=== PATIENT | female | born 1985 | race Caucasian/White ===

== ENCOUNTER 2017-03-11 18:37 | Emergency (ER) | payer OTHER ==
--- NOTE | 2017-03-11 21:35 | ED NURSING NOTES ---
Clinical Report - Nurses [facility] [address] [place] [address] 03/11/2017 18:38 Patient: HAIM BELLA TRIAGE Triage time 18:42. Acuity: LEVEL 3. Chief Complaint: ABDOMINAL PAIN and CRAMPS, SPOTTING and VAGINAL BLEEDING. --18:56 Young Singh R.N. 18:42 03/11/17. BP: 127/81. HR: 71. RR: 16. O2 saturation: 100%. Temp: 98 F. Pain level now: 02/27. --18:56 Young Singh R.N. Weight: 57.6 kg. Height/Length: 65 inches. BMI: 21.2. --18:56 Young Singh R.N. Medications Nadolol Oral. --18:48 Young Singh R.N. Pre vitamins. --18:48 Young Singh R.N. Medication/allergy information source: the patient. --18:56 Young Singh R.N. Allergies Cefaclor. --18:51 Young Singh R.N. The following entry was struck by Young Singh R.N., 18:50 (03/11/17) Reason - other. <<STRICKEN ENTRY-- No Known Drug Allergy. --18:48 Young Singh R.N. --END STRIKE>>. History Arrived by private vehicle. Historian: patient. Accompanied by spouse. ( LMP 01/10/2017, seen at urgent care today and had serum HCG (79.29) done. Has been having having dark brown vaginal spotting with abdominal cramping.). This started today. Last oral intake by patient was (5 hours ago). 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 PAST MEDICAL HX: Last normal menstrual period- January 10. 1. Para 0. She has had care in a clinic. SURGERY HX: ( defibrillator implant). SOCIAL HX: Light tobacco smoker (cigarette)- less than 1/2 a pack per day. Occasional alcohol use; consumes beer occasionally. --18:56 Young Singh R.N. PROBLEMS: Long QT syndrome. ICD (Implanted defibrillator). --18:50 Young Singh R.N. Interventions ID band on patient. To room. --18:56 Young Singh R.N. PHYSICAL ASSESSMENT Ambulatory to room. GENERAL / NEURO / PSYCH: Alert. Oriented X 4. Appears in no acute distress. HEENT: Mucous membranes are pink. RESPIRATORY: Respirations not labored. Breath sounds within normal limits. CVS: Normal heart rate and rhythm. Capillary refill less than 2 seconds. GI / : Abdomen soft. Abdominal tenderness in the suprapubic area and left lower quadrant. Bowel sounds within normal limits. Moderate vaginal bleeding present, consisting of dark blood. EXTREMITIES: No lower extremity edema. SKIN: Skin is warm and dry. --18:58 Young Singh R.N. NURSING PROGRESS NOTES Head of bed elevated. Reassurance given. Patient identifiers checked. Call light placed in reach. Side rails up x 1. Bed placed in lowest position. Brakes of bed on. Patient ready for evaluation- HOUSE WRECKER notified. --18:58 Young Singh R.N. 19:27 03/11/2017 Site #1 started via IV in the right antecubital space with an 20g angiocath; one attempt. Blood drawn: rainbow set. Labeled in the presence of the patient and sent to the lab. Saline lock flushed with 10 mL saline. --19:27 Young Singh R.N. Patient ID band checked for patient name and birthdate: family confirmed. Blood samples drawn from the IV site with Vacutainer by nurse: rainbow set. Line flushed with 10 mL normal saline post blood draw. Reassessment after procedure (ultrasound). Overall patient status is the same. GI / : Abdominal tenderness in the left lower quadrant and lower abdomen. BACK: The patient reports low back pain. SKIN: Skin is warm. --19:27 Young Singh R.N. 20:37 03/11/17. BP: 110/60. HR: 64. RR: 16. O2 saturation: 98%. --20:38 Young Singh R.N. GI / : The patient reports abdominal pain located in the LLQ and lower abdomen. Abdominal tenderness. SKIN: Skin is warm and dry. --20:38 Young Singh R.N. 21:56 03/11/2017 Site #1 removed upon discharge. Manual pressure applied. --21:56 Young Singh R.N. DISPOSITION / DISCHARGE No learning barriers present. Discharge instructions provided and reviewed with the patient and spouse. Reviewed referral to a primary care physician for followup. Patient and spouse verbalized understanding. Written instructions provided. The patient was discharged home and accompanied by spouse. She left the Emergency Department ambulatory and via private vehicle. Spouse driving. --21:55 Young Singh R.N. 21:54 03/11/17. BP: 112/72. HR: 78. RR: 16. O2 saturation: 100%. Pain level now: 0/10. --21:55 Young Singh R.N. Departure time: 21:56. --21:56 Young Singh R.N. Locked/Released at 03/11/2017 21:56 by Young Singh R.N.
--- NOTE | 2017-03-11 21:35 | ED CLINICAL REPORT ---
Clinical Report - Physicians/Mid Levels [facility] [address] [place] [address] 03/11/2017 18:38 [id number] Time Seen: 18:57 Mar 11 2017. Arrived- By private vehicle. Historian- patient. HISTORY OF PRESENT ILLNESS Chief Complaint: VAGINAL BLEEDING. This started just prior to arrival and still present. The symptoms are described as mild. The patient has had pelvic pain. ( last Menstrual period January 10,positive test at home around 10 days previously, now with some abdominal cramping on the left side and some brown discharge.). REVIEW OF SYSTEMS No nausea, vomiting, headache, cough or difficulty breathing. No enlarged lymph nodes. All systems otherwise negative, except as recorded above. SOCIAL HISTORY Smoker- current status unknown. Alcohol use. ADDITIONAL NOTES The nursing notes have been reviewed. PHYSICAL EXAM Vital Signs: 03/11/2017 18:42 BP: 127/81. HR: 71. RR: 16. O2 saturation: 100%. Temp: 98 F. Pain level now: 5/10. Appearance: Alert. No acute distress. HEENT: Normal external inspection. ENT: Pharynx normal. Neck: Neck supple. CVS: Heart sounds normal. Respiratory: No respiratory distress. Breath sounds normal. Abdomen: Soft. Bowel sounds normal. Back: Normal external inspection. No CVA tenderness. : External inspection normal. Speculum exam normal. A scant amount of thick and bloody vaginal discharge present. No cervical dilation. No tenderness present on bimanual exam. No uterine tenderness. No tenderness with movement of the cervix. (chaperoned exam with Manuela SMILEY). Skin: Skin warm. Neuro: Oriented X 3. LABS, X-RAYS, AND EKG Laboratory Tests: UA-Culture if indicated: (JOSE A: 03/11/2017 19:00) ( MsgRcvd 03/11/2017 19:22) Final results Test Result Flag Units (Reference) URINE COLOR YELLOW URINE APPEARANCE CLEAR URINE GLUCOSE NEGATIVE (NEGATIVE) URINE BILIRUBIN NEGATIVE (NEGATIVE) URINE KETONE NEGATIVE (NEGATIVE) URINE SPECIFIC GRAVITY 1.020 (1.010-1.030) URINE PH 6.0 (5.0-8.0) URINE PROTEIN NEGATIVE (NEGATIVE) URINE UROBILINOGEN 0.2 EU/dL (0.2-1.0) URINE NITRITE NEGATIVE (NEGATIVE) URINE BLOOD TRACE-INTACT (NEGATIVE) URINE LEUK ESTERASE NEGATIVE (NEGATIVE) URINE RBC 0-1 rbc/hpf (0-1) URINE WBC 0-1 wbc/hpf (0-1) URINE EPITHELIAL CELLS 0-1 EPI/hpf (0-5) URINE BACTERIA NONE SEEN (NONE SEEN) URINE COMMENT CULT NOT INDICATED URINE CULTURES ARE SET-UP BASED ON THE FOLLOWING CRITERIA:POSITIVE NITRITEPOSITIVE LEUKOCYTE ESTERASEGREATER THAN 10 WHITE BLOOD CELLSMODERATE (2+) OR GREATER BACTERIA CBC w Diff: (JOSE A: 03/11/2017 19:25) ( [facility] 03/11/2017 19:36) Final results Test Result Flag Units (Reference) WHITE BLOOD COUNT 7.6 K/uL (4.5-11.5) RED BLOOD COUNT 4.19 M/uL (4.00-5.20) HEMOGLOBIN 13.4 gm/dL (12.0-16.0) HEMATOCRIT 39.4 % (36.0-46.0) MEAN CELL VOLUME 94 fL (80-100) MEAN CORPUSCULAR HGB 32 pg (26-34) MEAN CORPUSCULAR HGB CONC 34 g/dL (31-37) RED CELL DISTRIBUTION WIDTH 12.3 % (11.6-14.8) PLATELET COUNT 257 K/uL (150-400) NEUTROPHIL % 50.2 % (50-75) LYMPH % 41.3 H % (25-40) MONO % 7.1 % (3-14) EOSINOPHIL % 0.9 % (0-4) BASOPHIL % 0.5 % (0-2) CMP: (JOSE A: 03/11/2017 19:25) ( MngRcvd 03/11/2017 20:16) Final results Test Result Flag Units (Reference) GLUCOSE 93 mg/dL (70-110) BUN 15 mg/dL (7-18) CREATININE 0.7 mg/dL (0.6-1.3) Estimated GFR >60 mL/min Estimated GFR- >60 mL/min Note: Persistent reduction over 3 months in eGFR<60 mL/min/1.73 m2 defines CKD. Patients with eGFR values>=60 mL/min/1.73 m2 may also have CKD if evidence ofpersistent proteinuria. Additional information may be foundat www.kidney.org. SODIUM 139 mmol/L (136-145) POTASSIUM 3.8 mmol/L (3.5-5.1) CHLORIDE 104 mmol/L (98-107) CARBON DIOXIDE 24 mmol/L (21-32) CALCIUM 8.9 mg/dL (8.5-10.1) TOTAL PROTEIN 7.6 g/dL (6.4-8.2) ALBUMIN 4.3 g/dL (3.3-5.0) BILIRUBIN, TOTAL 0.6 mg/dL (0.0-1.0) ALKALINE PHOSPHATASE 44 L U/L (46-116) AST (SGOT) 23 U/L (15-37) ALT (SGPT) 22 U/L (12-78) BETA HCG, QUANTITATIVE 94 mIU/mL REFERENCE RANGE:Adult Males: <2 mIU/mLNon- Females: <6 mIU/mL Females:Approximate Approximate hCGGestational Age Range (mIU/mL) 0-1 week 0-501-2 weeks 40-3002-3 weeks 100-35267-5 weeks 500-30034-1 months 5,000-200,0002-3 months 10,000-100,0002nd trimester 3,000-50,0003rd trimester 1,000-50,000 Wet Prep: (JOSE A: 03/11/2017 20:39) ( MsgRcvd 03/11/2017 20:51) Final results SPECIMEN DESCRIPTION: C Test Result Flag Units (Reference) WET MOUNT CLUE CELLS:: FEW * EPITHELIAL CELLS: FEW -- SOURCE?: CERVIX WHITE BLOOD CELLS: FEW TRICHOMONAS:: NONE -- YEAST:: NONE Type & Rh: (JOSE A: 03/11/2017 19:25) ( MsgRcvd 03/11/2017 21:24) Final results Test Result Flag Units (Reference) PATIENT BLOOD TYPE O Positive . Note - Tests: (us: IMPRESSION: 1. No evidence of an intrauterine gestational sac. Recommend follow-up Beta hCG and ultrasound 2. 2.6 cm simple left ovarian cyst with minimal free fluid Electronically Final signed by:Jeremy Milner MD 03/11/2017 9:58:39 PM). PROGRESS AND PROCEDURES Course of Care: atient was a low hCG, which does not clinically correlate to any signs of , maybe early development of , maybe lasting portion of miscarriage. Patient to have laboratory drawn again in 48 hours. Understands this. No positive. Pain not out of proportion to exam. No signs of ectopic. 03/11/2017 21:54 BP: 112/72. HR: 78. RR: 16. O2 saturation: 100%. Pain level now: 0/10. Patient is stable. Symptoms better. Patient/family counseled. Disposition: Discharged. Condition: good. CLINICAL IMPRESSION First trimester ; positive test in emergency department. INSTRUCTIONS (PATIENT BLOOD TYPE O Positive BETA HCG, QUANTITATIVE 94 mIU/mL REFERENCE RANGE: Adult Males: <2 mIU/mL Non- Females: <6 mIU/mL Females: Approximate Approximate hCG Gestational Age Range (mIU/mL) 0-1 week 0-50 1-2 weeks 40-300 2-3 weeks 100-1000 3-4 weeks 500-6000 1-2 months 5,000-200,000 2-3 months 10,000-100,000 2nd trimester 3,000-50,000 3rd trimester 1,000-50,000 ). (Electronically signed by Nancy Villasenor P.A.-C 03/11/2017 23:18)
--- NOTE | 2017-03-11 21:35 | ED ORDER SUMMARY ---
..... Patient: HAIM BELLA OrderSheet [facility] VisitID: [id number] [place] [address] 31y, F Registration Date/Time: 03/11/2017 ORDER SHEET Weight: 57.6 kg Allergies: Cefaclor GENERAL ORDERS: US OB 1st Trimester w Transvag (january 08) Urgent (18:56 03/11/2017 EKoroleva P.A.-C) (Ack 18:58 LMuller) (19:25 LMuller) CBC w Diff Urgent (18:57 03/11/2017 EKoroleva P.A.-C) (Ack 18:58 LMuller) (19:25 LMuller) CMP Urgent (18:57 03/11/2017 EKoroleva P.A.-C) (Ack 18:58 LMuller) (19:25 LMuller) Serum Quantitative Urgent (18:57 03/11/2017 EKoroleva P.A.-C) (Ack 18:58 LMuller) (19:25 LMuller) UA-Culture if indicated Urgent (18:57 03/11/2017 EKoroleva P.A.-C) (Ack 18:58 LMuller) (19:25 LMuller) Pelvic Exam Setup (18:57 03/11/2017 EKoroleva P.A.-C) (19:28 CHernandez R.N.) Type & Rh Urgent (20:21 03/11/2017 EKoroleva P.A.-C) (Ack 20:49 CHategekimana) (21:04 CHernandez R.N.) Wet Prep (Cervix) (c) Urgent (20:31 03/11/2017 EKoroleva P.A.-C) (Ack 20:50 CHategekimana) (21:40 EHassan R.N.) GC/Chlamydia (Cervix) (c) Urgent (20:31 03/11/2017 EKoroleva P.A.-C) (Ack 20:50 CHategekimana) (21:40 EHassan R.N.) MEDICATION ORDERS: IV FLUIDS: ORDER SHEET NOTES: [Electronically signed by Young Singh R.N. (:56 03/11/2017)] [Electronically signed by Nancy Villasenor P.A.-C (23:18 03/11/2017)] [Electronically locked/signed by Young Singh R.N. (:56 03/11/2017)]
--- NOTE | 2017-03-11 21:35 | ED NURSING NOTES ---
Clinical Report - Nurses [facility] [address] [place] [address] 03/11/2017 18:38 Patient: HAIM BELLA TRIAGE Triage time 18:42. Acuity: LEVEL 3. Chief Complaint: ABDOMINAL PAIN and CRAMPS, SPOTTING and VAGINAL BLEEDING. --18:56 Young Singh R.N. 18:42 03/11/17. BP: 127/81. HR: 71. RR: 16. O2 saturation: 100%. Temp: 98 F. Pain level now: 02/27. --18:56 Young Singh R.N. Weight: 57.6 kg. Height/Length: 65 inches. BMI: 21.2. --18:56 Young Singh R.N. Medications Nadolol Oral. --18:48 Young Singh R.N. Pre vitamins. --18:48 Young Singh R.N. Medication/allergy information source: the patient. --18:56 Young Singh R.N. Allergies Cefaclor. --18:51 Young Singh R.N. The following entry was struck by Young Singh R.N., 18:50 (03/11/17) Reason - other. <<STRICKEN ENTRY-- No Known Drug Allergy. --18:48 Young Singh R.N. --END STRIKE>>. History Arrived by private vehicle. Historian: patient. Accompanied by spouse. ( LMP 01/10/2017, seen at urgent care today and had serum HCG (79.29) done. Has been having having dark brown vaginal spotting with abdominal cramping.). This started today. Last oral intake by patient was (5 hours ago). 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 PAST MEDICAL HX: Last normal menstrual period- January 10. 1. Para 0. She has had care in a clinic. SURGERY HX: ( defibrillator implant). SOCIAL HX: Light tobacco smoker (cigarette)- less than 1/2 a pack per day. Occasional alcohol use; consumes beer occasionally. --18:56 Young Singh R.N. PROBLEMS: Long QT syndrome. ICD (Implanted defibrillator). --18:50 Young Singh R.N. Interventions ID band on patient. To room. --18:56 Young Singh R.N. PHYSICAL ASSESSMENT Ambulatory to room. GENERAL / NEURO / PSYCH: Alert. Oriented X 4. Appears in no acute distress. HEENT: Mucous membranes are pink. RESPIRATORY: Respirations not labored. Breath sounds within normal limits. CVS: Normal heart rate and rhythm. Capillary refill less than 2 seconds. GI / : Abdomen soft. Abdominal tenderness in the suprapubic area and left lower quadrant. Bowel sounds within normal limits. Moderate vaginal bleeding present, consisting of dark blood. EXTREMITIES: No lower extremity edema. SKIN: Skin is warm and dry. --18:58 Young Singh R.N. NURSING PROGRESS NOTES Head of bed elevated. Reassurance given. Patient identifiers checked. Call light placed in reach. Side rails up x 1. Bed placed in lowest position. Brakes of bed on. Patient ready for evaluation- AIRCRAFT ASSEMBLER notified. --18:58 Young Singh R.N. 19:27 03/11/2017 Site #1 started via IV in the right antecubital space with an 20g angiocath; one attempt. Blood drawn: rainbow set. Labeled in the presence of the patient and sent to the lab. Saline lock flushed with 10 mL saline. --19:27 Young Singh R.N. Patient ID band checked for patient name and birthdate: family confirmed. Blood samples drawn from the IV site with Vacutainer by nurse: rainbow set. Line flushed with 10 mL normal saline post blood draw. Reassessment after procedure (ultrasound). Overall patient status is the same. GI / : Abdominal tenderness in the left lower quadrant and lower abdomen. BACK: The patient reports low back pain. SKIN: Skin is warm. --19:27 Young Singh R.N. 20:37 03/11/17. BP: 110/60. HR: 64. RR: 16. O2 saturation: 98%. --20:38 Young Singh R.N. GI / : The patient reports abdominal pain located in the LLQ and lower abdomen. Abdominal tenderness. SKIN: Skin is warm and dry. --20:38 Young Singh R.N. 21:56 03/11/2017 Site #1 removed upon discharge. Manual pressure applied. --21:56 Young Singh R.N. DISPOSITION / DISCHARGE No learning barriers present. Discharge instructions provided and reviewed with the patient and spouse. Reviewed referral to a primary care physician for followup. Patient and spouse verbalized understanding. Written instructions provided. The patient was discharged home and accompanied by spouse. She left the Emergency Department ambulatory and via private vehicle. Spouse driving. --21:55 Young Singh R.N. 21:54 03/11/17. BP: 112/72. HR: 78. RR: 16. O2 saturation: 100%. Pain level now: 0/10. --21:55 Young Singh R.N. Departure time: 21:56. --21:56 Young Singh R.N. Locked/Released at 03/11/2017 21:56 by Young Singh R.N.
--- NOTE | 2017-03-11 21:35 | ED ORDER SUMMARY ---
..... Patient: HAIM BELLA OrderSheet [facility] VisitID: [id number] [place] [address] 31y, F Registration Date/Time: 03/11/2017 ORDER SHEET Weight: 57.6 kg Allergies: Cefaclor GENERAL ORDERS: US OB 1st Trimester w Transvag (january 08) Urgent (18:56 03/11/2017 EKoroleva P.A.-C) (Ack 18:58 LMuller) (19:25 LMuller) CBC w Diff Urgent (18:57 03/11/2017 EKoroleva P.A.-C) (Ack 18:58 LMuller) (19:25 LMuller) CMP Urgent (18:57 03/11/2017 EKoroleva P.A.-C) (Ack 18:58 LMuller) (19:25 LMuller) Serum Quantitative Urgent (18:57 03/11/2017 EKoroleva P.A.-C) (Ack 18:58 LMuller) (19:25 LMuller) UA-Culture if indicated Urgent (18:57 03/11/2017 EKoroleva P.A.-C) (Ack 18:58 LMuller) (19:25 LMuller) Pelvic Exam Setup (18:57 03/11/2017 EKoroleva P.A.-C) (19:28 CHernandez R.N.) Type & Rh Urgent (20:21 03/11/2017 EKoroleva P.A.-C) (Ack 20:49 CHategekimana) (21:04 CHernandez R.N.) Wet Prep (Cervix) (c) Urgent (20:31 03/11/2017 EKoroleva P.A.-C) (Ack 20:50 CHategekimana) (21:40 EHassan R.N.) GC/Chlamydia (Cervix) (c) Urgent (20:31 03/11/2017 EKoroleva P.A.-C) (Ack 20:50 CHategekimana) (21:40 EHassan R.N.) MEDICATION ORDERS: IV FLUIDS: ORDER SHEET NOTES: [Electronically signed by Young Singh R.N. (:56 03/11/2017)] [Electronically signed by Nancy Villasenor P.A.-C (23:18 03/11/2017)] [Electronically locked/signed by Young Singh R.N. (:56 03/11/2017)]
--- NOTE | 2017-03-11 21:58 | DIAGNOSTIC IMAGING REPORT ---
PROCEDURE: US OB 1ST TRIMESTER W/TRANSVAG INDICATION: ABNORMAL BLEEDING TECHNIQUE: Hsieh scale, color, and spectral Doppler transabdominal and endovaginal sonographic images of the first trimester gravid uterus were obtained. COMPARISON: None. FINDINGS: TRANSABDOMINAL SCANS: Anteverted uterus. TRANSVAGINAL SCANS: Myometrium is unremarkable. Endometrium measures 11 mm. No evidence of a gestational sac. 2.6 cm simple left ovarian cysts with minimal free fluid the cul-de-sac. Right ovary is unremarkable. IMPRESSION: 1. No evidence of an intrauterine gestational sac. Recommend follow-up Beta hCG and ultrasound 2. 2.6 cm simple left ovarian cyst with minimal free fluid
--- NOTE | 2017-03-11 23:18 | ED MAR SUMMARY ---
..... Medication Administration Record [facility] [address], [place] [id number] Patient: HAIM BELLA Dianna Visit ID: [id number] 31y, F Weight: 57.6 kg Height/Length: 65 in BMI: 21.2 ALLERGIES: Cefaclor
--- NOTE | 2017-03-11 23:18 | ED MED RECONCILIATION SUMMARY ---
Patient: HAIM BELLA Medication Reconciliation Report [facility] VisitID: [id number] [address] [place] [address] 31y, F Registration Date/Time: 03/11/2017 Weight: 57.6 kg Height/Length: 65 in. BMI: 21.2 ALLERGIES: Cefaclor The patient's Home Medications are listed below: THE FOLLOWING MEDICATIONS NEED TO BE RECONCILED: Nadolol Oral Pre lulu vitamins The source(s) of the original Home Medication information: patient The following Medications were given to the patient in the Emergency Department: None. The following Medications were prescribed to the patient: None.
--- NOTE | 2017-03-11 23:18 | ED MAR SUMMARY ---
..... Medication Administration Record [facility] [address] [place], [place] [id number] Patient: HAIM BELLA Dianna Visit ID: [id number] 31y, F Weight: 57.6 kg Height/Length: 65 in BMI: 21.2 ALLERGIES: Cefaclor
--- NOTE | 2017-03-11 23:18 | ED DISCHARGE INSTRUCTIONS ---
Patient: HAIM BELLA General Instructions [facility] VisitID: [id number] [place] [address] 31y, F Registration Date/Time: 03/11/2017 First trimester ; positive test in emergency department. INSTRUCTIONS (PATIENT BLOOD TYPE O Positive BETA HCG, QUANTITATIVE 94 mIU/mL REFERENCE RANGE: Adult Males: <2 mIU/mL Non- Females: <6 mIU/mL Females: Approximate Approximate hCG Gestational Age Range (mIU/mL) 0-1 week 0-50 1-2 weeks 40-300 2-3 weeks 100-1000 3-4 weeks 500-6000 1-2 months 5,000-200,000 2-3 months 10,000-100,000 2nd trimester 3,000-50,000 3rd trimester 1,000-50,000 ). ADDITIONAL INFORMATION Your exam today shows that you are . During , it is normal to develop tender swollen breasts, frequent urination and mild vaginal discharge. During the first three months, nausea is common. Guidelines For A Healthy : To ensure that your baby is born healthy there are certain things that you can do: When you feel tired, you should REST. This is especially true in the later months of . Your body needs more FLUIDS than you may be used to: You should drink 8-10 glasses of juice, milk or water. Eat well-balanced MEALS at regular intervals to supply your body with enough protein. You can expect a total weight gain of about 30 pounds during the . Do not try to diet or lose weight while you are . Because of the extra nutritional needs during , take one VITAMIN daily. Do not take any other MEDICINE during your (prescribed or [id number]) unless your doctor specifically recommends this. Many drugs can have harmful effects on the growing baby. If NAUSEA or VOMITING become a problem, avoid greasy and fried foods. Eat several smaller meals throughout the day rather than three large meals. If you SMOKE, you must stop. The nicotine you breathe in goes right to the baby. Stay away from ALCOHOL, even in moderate amounts. Daily drinking will harm your baby and can cause permanent brain damage. RECREATIONAL DRUGS are harmful, especially cocaine, crack, and heroin. Marijuana should also be avoided. If you were using recreational drugs or prescribed medicine when you found out that you were , talk to your doctor about possible effects on the fetus. Follow Up: Call to arrange for care. This can be provided by your family doctor, an gate guard ( specialist) or a primary care clinic. Get Prompt Medical Attention if any of the following occur: Vaginal bleeding Moderate or severe abdominal or back pain Excessive vomiting, unable to keep any fluids down for six hours Burning with urination Headache, dizziness or rapid weight gain You have been given the following additional information: , New Dx (Electronically signed by Nancy Villasenor P.A.-C 03/11/2017 23:18)
--- NOTE | 2017-03-11 23:18 | ED DISCHARGE INSTRUCTIONS ---
Patient: HAIM BELLA General Instructions [facility] VisitID: [id number] [place] [address] 31y, F Registration Date/Time: 03/11/2017 First trimester ; positive test in emergency department. INSTRUCTIONS (PATIENT BLOOD TYPE O Positive BETA HCG, QUANTITATIVE 94 mIU/mL REFERENCE RANGE: Adult Males: <2 mIU/mL Non- Females: <6 mIU/mL Females: Approximate Approximate hCG Gestational Age Range (mIU/mL) 0-1 week 0-50 1-2 weeks 40-300 2-3 weeks 100-1000 3-4 weeks 500-6000 1-2 months 5,000-200,000 2-3 months 10,000-100,000 2nd trimester 3,000-50,000 3rd trimester 1,000-50,000 ). ADDITIONAL INFORMATION Your exam today shows that you are . During , it is normal to develop tender swollen breasts, frequent urination and mild vaginal discharge. During the first three months, nausea is common. Guidelines For A Healthy : To ensure that your baby is born healthy there are certain things that you can do: When you feel tired, you should REST. This is especially true in the later months of . Your body needs more FLUIDS than you may be used to: You should drink 8-10 glasses of juice, milk or water. Eat well-balanced MEALS at regular intervals to supply your body with enough protein. You can expect a total weight gain of about 30 pounds during the . Do not try to diet or lose weight while you are . Because of the extra nutritional needs during , take one VITAMIN daily. Do not take any other MEDICINE during your (prescribed or [id number]) unless your doctor specifically recommends this. Many drugs can have harmful effects on the growing baby. If NAUSEA or VOMITING become a problem, avoid greasy and fried foods. Eat several smaller meals throughout the day rather than three large meals. If you SMOKE, you must stop. The nicotine you breathe in goes right to the baby. Stay away from ALCOHOL, even in moderate amounts. Daily drinking will harm your baby and can cause permanent brain damage. RECREATIONAL DRUGS are harmful, especially cocaine, crack, and heroin. Marijuana should also be avoided. If you were using recreational drugs or prescribed medicine when you found out that you were , talk to your doctor about possible effects on the fetus. Follow Up: Call to arrange for care. This can be provided by your family doctor, an public stenographer ( specialist) or a primary care clinic. Get Prompt Medical Attention if any of the following occur: Vaginal bleeding Moderate or severe abdominal or back pain Excessive vomiting, unable to keep any fluids down for six hours Burning with urination Headache, dizziness or rapid weight gain You have been given the following additional information: , New Dx (Electronically signed by Nancy Villasenor P.A.-C 03/11/2017 23:18)
--- NOTE | 2017-03-11 23:18 | ED MED RECONCILIATION SUMMARY ---
Patient: HAIM BELLA Medication Reconciliation Report [facility] VisitID: [id number] [address] [place] [address] 31y, F Registration Date/Time: 03/11/2017 Weight: 57.6 kg Height/Length: 65 in. BMI: 21.2 ALLERGIES: Cefaclor The patient's Home Medications are listed below: THE FOLLOWING MEDICATIONS NEED TO BE RECONCILED: Nadolol Oral Pre lulu vitamins The source(s) of the original Home Medication information: patient The following Medications were given to the patient in the Emergency Department: None. The following Medications were prescribed to the patient: None.
== END 2017-03-11 21:55 | disposition home or self-care (01) ==
LOC: ED SRH 18:37
DX: Z32.01 Encounter for pregnancy test, result positive (principal); Z88.1 Allergy status to other antibiotic agents; Z3A.00 Weeks of gestation of pregnancy not specified
CPT/HCPCS: 90001; 90004; 90100; 90155; 90195; 90197; 91227; 91228; 95059